=== PATIENT | male | born 1980 | race Caucasian/White ===

== ENCOUNTER 2020-07-28 00:46 | Emergency (ER) | payer SELFPAY ==
[~2020-07-28] VITALS: Ht 165.1 cm; Wt 92.0 kg
[2020-07-28 03:05] VITALS: BP 140/86
== END 2020-07-28 03:05 | disposition home or self-care (01) ==
LOC: ER 00:46
DX: Z20.828 Contact with and (suspected) exposure to other viral communicable diseases (principal); R50.9 Fever, unspecified; R05 Cough; J02.9 Acute pharyngitis, unspecified; I10 Essential (primary) hypertension
CPT/HCPCS: 71045; 87635; 99284

== ENCOUNTER 2021-05-04 20:38 | Emergency (ER) | payer MEDICAID ==
[~2021-05-04] VITALS: Ht 165.1 cm; Wt 88.0 kg
[2021-05-04 20:51] VITALS: BP 162/107
[2021-05-04] MEDS ORDERED: BO1 TP (22:59)
[2021-05-04] MEDS ORDERED: IBUP-2028 MT (22:59)
[2021-05-04] MEDS ORDERED: IBUPROFEN 400MG TABLET PO ONE (23:00)
[2021-05-04] MEDS ORDERED: BACITRACIN ZINC OINT UDPKT TOP ONE (23:00)
[2021-05-04] MEDS ORDERED: TETANUS, DIPHTHERIA, PERTUSSIS VAC/PF 0.5ML (>7YR OLD) IM ONE (23:00)
== END 2021-05-04 23:48 | disposition home or self-care (01) ==
LOC: ER 20:38
DX: T25.222A Burn of second degree of left foot, initial encounter (principal); T31.0 Burns involving less than 10% of body surface; X12.XXXA Contact with other hot fluids, initial encounter; Y93.89 Activity, other specified; Y92.89 Other specified places as the place of occurrence of the external cause
CPT/HCPCS: 16020; 99283